=== PATIENT | male | born 1995 | race Two or more races ===

== ENCOUNTER 2025-05-06 10:28 | Emergency (ER) | payer BC ==
[~2025-05-06] VITALS: Ht 175.3 cm; Wt 117.9 kg
[2025-05-06 10:36] VITALS: BP 166/95; TEMP 98.3
[2025-05-06] MEDS ORDERED: dexaMETHasone SOD PHOSPHATE 1 ML ONE (11:49)
[2025-05-06] MEDS ORDERED: PENICILLIN G BENZATHINE 2.4 MMU/4 ML ML IM ONE (11:50)
[2025-05-06] MEDS: dexaMETHasone SOD PHOSPHATE 10 MG/ML VIAL MC ONE (12:00)
[2025-05-06] MEDS: PENICILLIN G BENZATHINE 2.4 MMU/4 ML ML IM ONE (12:00)
[2025-05-06 12:23] VITALS: O2SAT 99
== END 2025-05-06 12:23 | disposition home or self-care (01) ==
LOC: ER 10:38
DX: J02.0 Streptococcal pharyngitis (principal)
CPT/HCPCS: 99283; 96372; J0558; J1100